=== PATIENT | male | born 1975 | race Hispanic/Latino ===

== ENCOUNTER 2020-07-06 15:05 | Emergency (ER) | payer SELFPAY ==
[2020-07-06 19:51] LABS: Absolute Lymphocytes (CBC) 1.1 K/uL (0.7-4.9); Basophils % 0.6 % (0-1.3); Hematocrit 43.9 % (39.6-49.0); Lymphocytes % 16.9 % (15.3-44.8); MPV 8.9 fL (7.6-11.3); RBC Red Blood Cell Count 4.67 M/uL (4.33-5.43)
[2020-07-06 19:57] LABS: Protime INR 1.11
--- NOTE | 2020-07-06 20:01 | RAD REPORT ---
EXAM DESCRIPTION: RAD - Chest Single View - 07/06/2020 7:29 pm CLINICAL HISTORY: SOB Chest pain. COMPARISON: No comparisons FINDINGS: Portable technique limits examination quality. Mild to moderate bilateral pulmonary opacities are present in the lung bases likely representing tung l infection/ bronchitis. The heart is normal in size. No displaced fractures.
[2020-07-06] MEDS ORDERED: METHYLPREDNISOLONE 125 MG INJ ONE (20:03)
[2020-07-06] MEDS ORDERED: IPRATROPIUM BROM 0.5MG/2.5ML ONE (20:04)
[2020-07-06] MEDS ORDERED: ALBUTEROL 2.5 MG/3 ML NEB SOL ONE (20:04)
[2020-07-06 20:12] LABS: ALT/SGPT 54 U/L (12-78); AST/SGOT 46 U/L (15-37); Albumin 3.3 g/dL (3.4-5.0); Alkaline Phosphatase 46 U/L (45-117); BUN Blood Urea Nitrogen 9 mg/dL (7-18); Bicarbonate 22 mmol/L (21-32); Bilirubin Direct 0.2 mg/dL (0-0.2); Bilirubin Total 0.7 mg/dL (0.2-1.0); Glucose Level 114 mg/dL (74-106); Magnesium 2.2 mg/dL (1.8-2.4); NT PRO-BNP 22 pg/mL (<125); Potassium 3.8 mmol/L (3.5-5.1); Protein, Total 7.7 g/dL (6.4-8.2); Sodium Level 139 mmol/L (136-145); Troponin (Emerg Dept Use Only) < 0.02 ng/mL (0.0-0.045)
--- NOTE | 2020-07-06 20:43 | RAD REPORT ---
EXAM DESCRIPTION: CT - Chest For Pe Angio - 07/06/2020 8:31 pm CLINICAL HISTORY: Chest pain. SOB COMPARISON: No comparisons TECHNIQUE: CT angiogram of the pulmonary arteries was performed with MIP. All CT scans are performed using dose optimization technique as appropriate and may include automated exposure control or mA/KV adjustment according to patient size. FINDINGS: No evidence of pulmonary thromboembolism. No acute aortic finding demonstrated. Moderate airspace opacities are present the superior segment left lower lobe, left upper lobe right l ower lobe compatible with multifocal pneumonia. No significant pericardial or pleural fluid. No concerning bony finding. IMPRESSION: No evidence of pulmonary thromboembolism. Moderate multifocal pneumonia pattern.
[2020-07-06 22:27] LABS: SARS-COV-2 RT PCR POSITIVE (NEGATIVE)
--- NOTE | 2020-07-06 23:21 | ER ---
Nurse's Notes [facility] Name: Catrachito Redding Age: 45 yrs Sex: Male : 1975 Arrival Date: 07/06/2020 Time: 15:08 Bed 18 Private MD: Diagnosis: Pneumonia due to SARS-associated coronavirus Presentation: 07/06 15:14 Chief complaint: Patient states: Cough, SOB , fatigue weakness for 5 days. No appetite. ll1 O2 92% at home. Coronavirus screen: Client denies travel out of the [place] in the last 14 days. congestion, cough unrelated to allergies, diarrhea, difficulty breathing, fatigue, fever, headache, shortness of breath, loss of taste or smell, Client presents with at least one sign or symptom that may indicate coronavirus-19. Standard/surgical mask placed on the client. Ebola Screen: Patient denies travel to an Ebola-affected area in the 21 days before illness onset. Initial Sepsis Screen: Does the patient meet any 2 criteria? Temp <36.0*C (96.8*F)) or > 38.3*C (100.9*F). HR > 90 bpm. Yes Does the patient have a suspected source of infection? Yes: Productive cough/pneumonia. Risk Assessment: Do you want to hurt yourself or someone else? Patient reports no desire to harm self or others. Onset of symptoms was July 01, 2020. 15:14 Method Of Arrival: Ambulatory ll1 15:21 Acuity: YONATHAN 3 ll1 Historical: - Allergies: 15:14 No Known Allergies; ll1 - PMHx: 15:14 None; ll1 - PSHx: 15:14 None; ll1 - Immunization history:: Flu vaccine is not up to date. - Social history:: Smoking status: Patient denies any tobacco usage or history of. Screenin:47 Abuse screen: Denies threats or abuse. Nutritional screening: No deficits noted. bw Tuberculosis screening: No symptoms or risk factors identified. Fall Risk None identified. Assessment: 18:47 Reassessment: Patient appears in no apparent distress at this time. Patient and/or bw family updated on plan of care and expected duration. Pain level reassessed. Pain: Complains of pain in chest wall pain on inspiration. Neuro: No deficits noted. Cardiovascular: No deficits noted. Cardiovascular: Rhythm is sinus tachycardia. Respiratory: Airway is patent Respiratory effort is even, unlabored, Respiratory pattern is tachypnea Breath sounds are diminished bilaterally. GI: No deficits noted. : No deficits noted. 20:00 Reassessment: Patient appears in no apparent distress at this time. Patient and/or sf family updated on plan of care and expected duration. Pain level reassessed. Patient is alert, oriented x 3, equal unlabored respirations, skin warm/dry/pink. Patient states feeling better. 21:00 Reassessment: Patient appears in no apparent distress at this time. No changes from sf previously documented assessment. Patient and/or family updated on plan of care and expected duration. Pain level reassessed. Patient is alert, oriented x 3, equal unlabored respirations, skin warm/dry/pink. 22:00 Reassessment: Patient appears in no apparent distress at this time. No changes from sf previously documented assessment. Patient and/or family updated on plan of care and expected duration. Pain level reassessed. Patient is alert, oriented x 3, equal unlabored respirations, skin warm/dry/pink. 23:00 Reassessment: Patient appears in no apparent distress at this time. No changes from sf previously documented assessment. Patient and/or family updated on plan of care and expected duration. Pain level reassessed. Patient is alert, oriented x 3, equal unlabored respirations, skin warm/dry/pink. Patient states feeling better. Vital Signs: 15:14 BP 109 / 81; Pulse 112; Resp 20; Temp 101.6; Pulse Ox 93% on R/A; Weight 68.04 kg; ll1 Height 5 ft. 5 in. (165.10 cm); Pain 7/10; 15:20 Resp 20; Pulse Ox 95% on 3 lpm NC; hb 18:47 BP 103 / 74; Pulse 105; Resp 21; Pulse Ox 96% on 2 lpm NC; Pain 4/10; bw 18:50 Temp 99.8(O); bw 19:30 BP 107 / 81; Pulse 93; Resp 20; Pulse Ox 92% on 2 lpm NC; sf 20:00 BP 105 / 73; Pulse 98; Resp 18; Pulse Ox 99% ; sf 20:34 BP 114 / 72; Pulse 98; Resp 18; Pulse Ox 99% ; sf 21:00 BP 101 / 65; Pulse 119; Resp 18; Pulse Ox 96% on R/A; sf 21:30 BP 95 / 62; Pulse 110; Resp 18; Pulse Ox 96% on R/A; sf 22:00 BP 104 / 72; Pulse 105; Resp 18; Pulse Ox 96% on R/A; sf 22:30 BP 98 / 65; Pulse 99; Resp 18; Pulse Ox 96% on R/A; sf 23:00 BP 99 / 76; Pulse 90; Resp 18; Pulse Ox 97% on R/A; sf 15:14 Body Mass Index 24.96 (68.04 kg, 165.10 cm) ll1 ED Course: 15:08 Patient arrived in ED. as 15:16 Triage completed. ll1 15:16 Arm band placed on. ll1 18:47 Hien Murry, RN is Primary Nurse. bw 18:47 Patient has correct armband on for positive identification. Bed in low position. Call bw light in reach. Side rails up X 1. Pulse ox on. NIBP on. room temp blanket given. 18:53 Hunter Kang NP is PHCP. pm1 18:53 Harish Tejada MD is Attending Physician. pm1 19:12 Primary Nurse role handed off by Hien Murry, VY mw2 19:12 Srinivasan Angel, VY is Primary Nurse. sf 19:20 X-ray(s) taken. sf 19:27 EKG done. sf 19:29 XRAY Chest (1 view) In Process Unspecified. EDMS 19:30 Initial lab(s) drawn, by wa, sent to lab. Inserted saline lock: 20 gauge in right sf forearm, using aseptic technique. Blood collected. 19:35 COVID swab sent to lab. Flu and/or RSV swab sent to lab. Strep swab sent to lab. sf 19:41 COVID-19 : Document "Date of Symptom Onset" if Symptomatic. Sent. sf 19:41 Strep Sent. sf 19:41 Flu Sent. sf 19:41 NT PRO-BNP Sent. sf 19:41 Magnesium Sent. sf 19:41 LFT's Sent. sf 19:42 CBC with Diff Sent. sf 19:42 Basic Metabolic Panel Sent. sf 20:31 CT Chest For PE Angio In Process Unspecified. EDMS 23:44 No provider procedures requiring assistance completed. IV discontinued, intact, sf bleeding controlled, No redness/swelling at site. Pressure dressing applied. Administered Medications: 19:49 Drug: Albuterol - atroVENT (ipratropium) (3:1) (2.5 mg - 0.5 mg) 3 ml Route: Nebulizer; sf 20:33 Follow up: Response: No adverse reaction sf 19:50 Drug: SOLU-Medrol 125 mg Route: IVP; Site: right forearm; sf 20:33 Follow up: Response: No adverse reaction sf Outcome: 23:20 Discharge ordered by MD. pm1 23:44 Discharged to home ambulatory. sf 23:44 Condition: stable 23:44 Discharge instructions given to patient, Instructed on discharge instructions, follow up and referral plans. medication usage, Demonstrated understanding of instructions, follow-up care, medications, Prescriptions given X 3. 23:44 Patient left the ED. sf Signatures: Dispatcher [employer] EDMS Leanne Elena Patrick, NP ELECTROMECHANICAL TECHNICIAN pm1 Poornima Ac RN RN Morenita Holbrook 2 Urbano Elliott RN RN 1 Srinivasan Angel RN RN sf Hien Murry RN RN Corrections: (The following items were deleted from the chart) 15:21 15:14 Acuity: YONATHAN 2 ll1 ll1 15:23 15:20 Pulse 20bpm; Pulse Ox 95% 3 lpm Nasal Cannula; ll1 hb
--- NOTE | 2020-07-06 23:21 | EDPHYS ---
Physician Documentation [facility] Name: Catrachito Redding Age: 45 yrs Sex: Male : 1975 Arrival Date: 07/06/2020 Time: 15:08 Bed 18 Private MD: ED Physician Harish Tejada HPI: 07/06 19:36 This 45 yrs old Male presents to ER via Ambulatory with complaints of pm1 Shortness Of Breath, Cough. 19:36 The patient has shortness of breath at rest. Onset: The symptoms/episode began/occurred pm1 5 day(s) ago. The patient's shortness of breath is aggravated by nothing, is alleviated by nothing. Associated signs and symptoms: Pertinent positives: productive cough, fatigue, Pertinent negatives: chest pain, nausea, vomiting, diarrhea. Severity of symptoms: in the emergency department the symptoms are worse. The patient has not experienced similar symptoms in the past. The patient has not recently seen a physician, Had covid test today at a clinic and it came back negative. Patient with exposure to covid from his brother. Historical: - Allergies: 15:14 No Known Allergies; ll1 - PMHx: 15:14 None; ll1 - PSHx: 15:14 None; ll1 - Immunization history:: Flu vaccine is not up to date. - Social history:: Smoking status: Patient denies any tobacco usage or history of. ROS: 19:36 Eyes: Negative for injury, pain, redness, and discharge, ENT: Negative for injury, pm1 pain, and discharge, Neck: Negative for injury, pain, and swelling, Cardiovascular: Negative for chest pain, palpitations, and edema. 19:36 Abdomen/GI: Negative for abdominal pain, nausea, vomiting, diarrhea, and constipation, Back: Negative for injury and pain. 19:36 MS/Extremity: Negative for injury and deformity, Skin: Negative for injury, rash, and discoloration, Neuro: Negative for headache, weakness, numbness, tingling, and seizure. 19:36 Constitutional: Positive for body aches, fatigue, Negative for fever. 19:36 Respiratory: Positive for cough, shortness of breath. Exam: 19:36 Constitutional: This is a well developed, well nourished patient who is awake, alert, pm1 and in no acute distress. Head/Face: Normocephalic, atraumatic. Cardiovascular: Regular rate and rhythm with a normal S1 and S2. No gallops, murmurs, or rubs. Normal PMI, no JVD. No pulse deficits. 19:36 Back: No spinal tenderness. No costovertebral tenderness. Full range of motion. Skin: Warm, dry with normal turgor. Normal color with no rashes, no lesions, and no evidence of cellulitis. MS/ Extremity: Pulses equal, no cyanosis. Neurovascular intact. Full, normal range of motion. 19:36 Respiratory: the patient does not display signs of respiratory distress, Breath sounds: bronchial sounds, that are mild, are heard diffusely. 19:36 Abdomen/GI: Exam negative for acute changes, Inspection: abdomen appears normal, Palpation: abdomen is soft and non-tender, in all quadrants. 19:36 Neuro: Exam negative for acute changes, Orientation: is normal, Mentation: is normal, Motor: is normal, moves all fours. Vital Signs: 15:14 BP 109 / 81; Pulse 112; Resp 20; Temp 101.6; Pulse Ox 93% on R/A; Weight 68.04 kg; ll1 Height 5 ft. 5 in. (165.10 cm); Pain 7/10; 15:20 Resp 20; Pulse Ox 95% on 3 lpm NC; hb 18:47 BP 103 / 74; Pulse 105; Resp 21; Pulse Ox 96% on 2 lpm NC; Pain 4/10; bw 18:50 Temp 99.8(O); bw 19:30 BP 107 / 81; Pulse 93; Resp 20; Pulse Ox 92% on 2 lpm NC; sf 20:00 BP 105 / 73; Pulse 98; Resp 18; Pulse Ox 99% ; sf 20:34 BP 114 / 72; Pulse 98; Resp 18; Pulse Ox 99% ; sf 21:00 BP 101 / 65; Pulse 119; Resp 18; Pulse Ox 96% on R/A; sf 21:30 BP 95 / 62; Pulse 110; Resp 18; Pulse Ox 96% on R/A; sf 22:00 BP 104 / 72; Pulse 105; Resp 18; Pulse Ox 96% on R/A; sf 22:30 BP 98 / 65; Pulse 99; Resp 18; Pulse Ox 96% on R/A; sf 23:00 BP 99 / 76; Pulse 90; Resp 18; Pulse Ox 97% on R/A; sf 15:14 Body Mass Index 24.96 (68.04 kg, 165.10 cm) ll1 MDM: 18:54 Patient medically screened. pm1 23:10 ED course: Discussed with hospitalist. Patient covid positive with moderate pneumonia. pm1 Patient's vital signs wnls and patient without any shortness of breath after breathing treatments. Patient without oxygen requirements so he does not met admission requirements. Therefore will discharge the patient home with return precautions. . 23:18 Data reviewed: vital signs. Data interpreted: Pulse oximetry: on room air is 96 %. pm1 Interpretation: normal. Counseling: I had a detailed discussion with the patient and/or guardian regarding: the historical points, exam findings, and any diagnostic results supporting the discharge/admit diagnosis, lab results, radiology results, the need for outpatient follow up, to return to the emergency department if symptoms worsen or persist or if there are any questions or concerns that arise at home. 07/06 19:10 Order name: COVID-19 : Document "Date of Symptom Onset" if Symptomatic. pm1 07/06 19:10 Order name: Flu pm1 07/06 19:10 Order name: Strep pm1 07/06 19:10 Order name: Basic Metabolic Panel pm1 07/06 19:10 Order name: CBC with Diff pm07/06 19:10 Order name: LFT's pm07/06 19:10 Order name: Magnesium pm1 07/06 19:10 Order name: NT PRO-BNP pm1 07/06 19:10 Order name: PT-INR; Complete Time: 20:13 pm1 07/06 19:10 Order name: Troponin (emerg Dept Use Only); Complete Time: 20:13 pm1 07/06 19:10 Order name: D-Dimer; Complete Time: 20:13 pm1 07/06 19:11 Order name: Group A Streptococcus Rapid Sc; Complete Time: 21:16 EDMS 07/06 19:10 Order name: Droplet/Contact Precautions; Complete Time: 19:18 pm1 07/06 19:10 Order name: Labs collected and sent; Complete Time: 19:41 pm1 07/06 19:10 Order name: O2 Per Protocol; Complete Time: 19:41 pm1 07/06 19:10 Order name: XRAY Chest (1 view); Complete Time: 20:03 pm1 07/06 19:10 Order name: EKG; Complete Time: 19:12 pm1 07/06 19:10 Order name: Cardiac monitoring; Complete Time: 19:41 pm1 07/06 19:11 Order name: Basic Metabolic Panel; Complete Time: 20:13 EDMS 07/06 19:11 Order name: CBC with Automated Diff; Complete Time: 20:03 EDMS 07/06 19:11 Order name: Liver (Hepatic) Function; Complete Time: 20:13 EDMS 07/06 19:11 Order name: Magnesium; Complete Time: 20:13 EDMS 07/06 19:11 Order name: NT PRO-BNP; Complete Time: 20:13 EDMS 07/06 20:14 Order name: CT Chest For PE Angio; Complete Time: 20:48 pm1 07/06 21:15 Order name: Throat Culture EDMS 07/06 22:27 Order name: COVID-19/FLU A+B; Complete Time: 22:50 EDMS 07/06 19:10 Order name: EKG - Nurse/Tech; Complete Time: 19:41 pm1 07/06 19:10 Order name: IV Saline Lock; Complete Time: 19:41 pm1 07/06 19:10 Order name: O2 Sat Monitoring; Complete Time: 19:41 pm1 Administered Medications: 19:49 Drug: Albuterol - atroVENT (ipratropium) (3:1) (2.5 mg - 0.5 mg) 3 ml Route: Nebulizer; sf 20:33 Follow up: Response: No adverse reaction sf 19:50 Drug: SOLU-Medrol 125 mg Route: IVP; Site: right forearm; sf 20:33 Follow up: Response: No adverse reaction sf Disposition: 07/06/20 23:20 Discharged to Home. Impression: Pneumonia due to SARS-associated coronavirus. - Condition is Stable. - Discharge Instructions: COVID-19. - Prescriptions for Prednisone 20 mg Oral Tablet - take 3 tablet by ORAL route once daily for 5 days; 15 tablet. Albuterol Sulfate 90 mcg/actuation - inhale 1-2 puff by INHALATION route every 4-6 hours; 1 Inhaler. Guaifenesin AC 10- 100 mg/5 mL Oral Liquid - take 10 milliliter by ORAL route every 4 hours As needed; 240 milliliter. - Medication Reconciliation Form, Thank You Letter, Antibiotic Education, Prescription Opioid Use form. - Follow up: Emergency Department; When: As needed; Reason: Worsening of condition. Follow up: Private Physician; When: 2 - 3 days; Reason: Recheck today's complaints, Continuance of care, Re-evaluation by your physician. - Problem is new. - Symptoms have improved. Addendum: 07/10/2020 10:05 Co-signature as Attending Physician, Harish Tejada MD. r n Signatures: Dispatcher [employer] EDKY Harish Tejada MD MD rn Hunter Kang, BIOMASS POWER PLANT MANAGER BIOMASS POWER PLANT MANAGER pm1 Urbano Elliott RN RN ll1 Srinivasan Angel RN RN sf Corrections: (The following items were deleted from the chart) 07/06 21:16 19:11 CORONAVIRUS ordered. [facility] EDKY 21:16 19:11 Influenza Screen (A ordered. [facility] EDKY 23:44 23:20 07/06/2020 23:20 Discharged to Home. Impression: Pneumonia due to SARS-associated sf coronavirus. Condition is Stable. Forms are Medication Reconciliation Form, Thank You Letter, Antibiotic Education, Prescription Opioid Use. Follow up: Emergency Department; When: As needed; Reason: Worsening of condition. Follow up: Private Physician; When: 2 - 3 days; Reason: Recheck today's complaints, Continuance of care, Re-evaluation by your physician. Problem is new. Symptoms have improved. pm1
[2020-07-07 00:20] VITALS: TEMP 101.6
[2020-07-07 00:41] VITALS: BP 99/76; O2SAT 97
--- NOTE | 2020-07-07 07:03 | EKG ---
Test Date: 2020-07-06 Test Time: 19:27:06 Webbing Tacker: NATHAN MEASUREMENT RESULTS: Intervals: Rate: 89 SC: 130 QRSD: 82 QT: 362 QTc: 440 [place]: P: 37 SC: 130 QRS: -1 T: 20 INTERPRETIVE STATEMENTS: Normal sinus rhythm Normal ECG No previous ECG available for comparison Electronically Signed On 07-07-20 07:02:22 CDT by Marko Mancera
[2020-07-07] MEDS ORDERED: IPRATROPIUM BROM 0.5MG/2.5ML ONE (15:33)
[2020-07-07] MEDS ORDERED: LEVALBUTEROL 1.25 MG/3 ML NEB ONE (15:33)
[2020-07-07] MEDS ORDERED: METHYLPREDNISOLONE 125 MG INJ ONE (15:37)
[2020-07-07] MEDS ORDERED: Magnesium Sulfate 2gm IVPB 2 G/50 ML BAG IV ONE (15:37)
== END 2020-07-06 23:44 | disposition home or self-care (01) ==
LOC: ER 15:05
DX: U07.1 COVID-19 (principal); J12.82 Pneumonia due to coronavirus disease 2019
CPT/HCPCS: 0240U; 36415; 71045; 71275; 80048; 80076; 83735; 83880; 84484; 85025; 85379; 85610; 87070; 87081; 93005; 96374; 99285; J2930; Q9967

== ENCOUNTER 2024-04-03 18:59 | Emergency (ER) | payer SELFPAY ==
[2024-04-03] MEDS ORDERED: NA CHLORIDE 0.9% 1,000 ML ONE (20:30)
[2024-04-03 21:18] LABS: Absolute Basophils 0.1 K/uL (0-0.5); Absolute Lymphocytes (CBC) 1.5 K/uL (0.7-4.9); Absolute Monocytes 0.2 K/uL (0.1-1.3); Absolute Neutrophil 4.4 K/uL (1.8-8.0); Basophils % 1.4 % (0-1.3); Eosinophils % 0.3 % (0-4.4); Hematocrit 47.1 % (39.6-49.0); Hemoglobin 16.1 g/dL (13.6-17.9); Lymphocytes % 24.5 % (15.3-44.8); MCH 33.4 pg (27.0-35.0); MCHC 34.2 g/dL (32.0-36.0); MCV 97.4 fL (80-100); MPV 7.3 fL (7.6-11.3); Monocytes % 3.4 % (3.3-12.3); Neutrophils % 70.4 % (41.7-73.7); Nucleated Red Blood Cells % 0.2 % (0-0); Platelets 368 thou/uL (152-406); RBC Red Blood Cell Count 4.84 M/uL (4.33-5.43); Red Cell Distribution Width 12.9 % (12.1-15.2)
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
--- NOTE | 2024-04-03 21:28 | RAD REPORT ---
Procedure: Chest Single View HISTORY: 2020 chest pain COMPARISON: 2020 FINDINGS: The lungs appear clear of acute infiltrate. No significant pleural effusion noted. The heart is normal size. IMPRESSION: No acute abnormality is displayed.
[2024-04-03 21:33] LABS: Anion Gap 14.9 mEq/L (5.0-15.0); Potassium 3.9 mEq/L (3.5-5.1)
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
[2024-04-03 22:19] VITALS: TEMP 98.8
[2024-04-03 22:22] VITALS: BP 121/85; O2SAT 97
== END 2024-04-03 22:03 | disposition home or self-care (01) ==
LOC: ER 18:59
DX: V49.9XXA Car occupant (driver) (passenger) injured in unspecified traffic accident, initial encounter (principal)
CPT/HCPCS: 36415; 70450; 71045; 71250; 72125; 74176; 80048; 82077; 85025; 86850; 86900; 86901; 96360; 99285; J7030